=== PATIENT | female | born 1975 | race Hispanic/Latino ===

== ENCOUNTER 2023-05-17 05:39 | Day surgery (SDC) | payer MEDICARE ==
[2023-05-17] VITALS (11 sets, daily range): BP systolic 100–126; BP diastolic 55–79; PULSE 73–100; RESP 14–20
[~2023-05-17] VITALS: Ht 162.6 cm; Wt 94.8 kg
[~2023-05-17 05:39] MED LIST: CETI10TA87 PO; CHLO25TA3 PO; CHOL125C6 PO; DESV100T6 PO; EMPA10TA PO; LOSA50TA64 PO; POTASSIUM; POTASSIUM PO; ROSU20TA73 PO; SEMA1PEN3 SQ; [UNRECOGNIZED DRUG - CODE] SL
[2023-05-17] MEDS: 0.9%NACL 1000ML 1,000 ML IV ONE (07:08)
[2023-05-17] MEDS ORDERED: PROPOFOL 10 MG/ML 20ML VIAL IV ONE ×4 (08:01→08:28)
== END 2023-05-17 10:10 | disposition home or self-care (01) ==
LOC: DAH 05:39 → ENDO 05:39
PROVIDERS: ATTEND Internal Medicine Gastroenterology
DX: R12 Heartburn (principal); Z12.11 Encounter for screening for malignant neoplasm of colon; D12.2 Benign neoplasm of ascending colon; K57.30 Diverticulosis of large intestine without perforation or abscess without bleeding; K29.50 Unspecified chronic gastritis without bleeding; K21.00 Gastro-esophageal reflux disease with esophagitis, without bleeding; K31.7 Polyp of stomach and duodenum; K31.89 Other diseases of stomach and duodenum; K44.9 Diaphragmatic hernia without obstruction or gangrene; K22.2 Esophageal obstruction; I10 Essential (primary) hypertension; E78.00 Pure hypercholesterolemia, unspecified; F41.9 Anxiety disorder, unspecified; F32.A Depression, unspecified; E66.9 Obesity, unspecified; Z68.36 Body mass index [BMI] 36.0-36.9, adult; Z82.49 Family history of ischemic heart disease and other diseases of the circulatory system; Z83.3 Family history of diabetes mellitus; Z79.899 Other long term (current) drug therapy; Z90.49 Acquired absence of other specified parts of digestive tract; Z98.890 Other specified postprocedural states
CPT/HCPCS: 43251; 82948; 43239; 45385; J7030 ×2; J2704 ×4; A4620; A4215; A4223; A7002; A4222; A4221; A4663; A4606; J3490